=== PATIENT | female | born 1995 | race Two or more races ===

== ENCOUNTER 2022-03-31 09:44 | Emergency (ER) | payer MEDICAID ==
[~2022-03-31] VITALS: Ht 152.4 cm; Wt 54.5 kg
[2022-03-31 11:35] LABS: Basophils # (auto) 0.1 10 ^3/uL (0-0.2); Basophils % (auto) 0.7 % (0.0-2.0); Eosinophils # (auto) 0.1 10 ^3/uL (0-0.8); Eosinophils % (auto) 1.2 % (0.0-7.0); Hematocrit 33.6 % (36.0-46.0); Lymphocytes # (auto) 1.6 10 ^3/uL (0.4-5.4); Lymphocytes % (auto) 14.3 % (10.0-50.0); Mean Corpuscular Hemoglobin 29.7 pg (28.0-32.0); Mean Corpuscular Hgb Conc. 32.6 g/dL (32.0-36.0); Monocytes # (auto) 0.6 10 ^3/uL (0-1.3); Monocytes % (auto) 5.3 % (0.0-12.0); Neutrophils % (auto) 78.5 % (37.0-80.0); Nucleated Red Blood Cells % 0.1 %; Red Blood Cells 3.69 10^6/uL (4.0-5.20); Red Cell Distribution Width 14.4 % (11.8-14.3); White Blood Cell 11.4 10^3/uL (4.4-10.8)
[2022-03-31 11:51] LABS: Urine Bacteria FEW /hpf (None Seen); Urine Blood Negative /uL (Negative); Urine Budding Yeast MODERATE /hpf (None Seen); Urine Mucus FEW (None Seen); Urine Specific Gravity 1.023 (1.001-1.035); Urine WBC 13 /hpf (0 - 5)
[2022-03-31 12:05] LABS: BUN/Creatinine Ratio 19.6; Potassium 4.3 mmol/L (3.5-5.1)
[2022-03-31 13:10] VITALS: BP 120/62
[2022-03-31] MEDS ORDERED: NITR-87 PO (13:27)
== END 2022-03-31 13:55 | disposition home or self-care (01) ==
LOC: ER 09:44
DX: O23.42 Unspecified infection of urinary tract in pregnancy, second trimester (principal); N39.0 Urinary tract infection, site not specified; Z79.899 Other long term (current) drug therapy; Z3A.22 22 weeks gestation of pregnancy
CPT/HCPCS: 36415; 76805; 80048; 81001; 81025; 84702; 85025

== ENCOUNTER 2022-07-27 21:45 | Observation (INO) | payer MEDICAID ==
[~2022-07-27] VITALS: Ht 152.4 cm; Wt 64.9 kg
[~2022-07-27 21:45] MED LIST: NITR-87 PO
[2022-07-28] MEDS ORDERED: PREN-96 PO (11:20)
== END 2022-07-28 01:07 | disposition home or self-care (01) ==
LOC: LDRP 21:45
PROVIDERS: ADMIT Obstetrics & Gynecology; ATTEND Obstetrics & Gynecology
DX: O62.9 Abnormality of forces of labor, unspecified (principal); Z3A.39 39 weeks gestation of pregnancy
CPT/HCPCS: 59025; 81002; 94760; G0378

== ENCOUNTER 2022-07-28 08:36 | Inpatient (IN) | payer MEDICAID ==
[~2022-07-28] VITALS: Ht 152.4 cm; Wt 63.5 kg
[2022-07-28] MEDS ORDERED: DERMOPLAST 60ML BOTTLE TOP PRN (10:30)
[2022-07-28] MEDS ORDERED: PHISODERM TOP SOLN 240ML BTL TOP PRN (10:30)
[2022-07-28] MEDS ORDERED: LIDOCAINE 2%HCL (LOCAL ANESTH.) INJ 20ML MDV IJ PRN (10:30)
[2022-07-28] MEDS ORDERED: LACT. RINGERS/OXYTOCIN 20UNITS 500 ML IV ONE ×2 (10:30→11:00)
[2022-07-28] MEDS ORDERED: BUTORPHANOL TARTRATE 2 MG/1 ML VIAL IV PRN ×2 (10:30)
[2022-07-28] MEDS ORDERED: PROMETHAZINE HCL 25 MG/ML 1ML IV PRN (10:30)
[2022-07-28] MEDS ORDERED: PENICILLIN G POT 5MIL/D5 50ML 50 ML IV ONE (10:30)
[2022-07-28] MEDS: LACTATED RINGER'S 1,000 ML IV SCH ×2 (10:47→17:39)
[2022-07-28 11:03] LABS: Basophils # (auto) 0 10 ^3/uL (0-0.2); Basophils % (auto) 0.3 % (0.0-2.0); Eosinophils # (auto) 0.1 10 ^3/uL (0-0.8); Eosinophils % (auto) 0.4 % (0.0-7.0); Hematocrit 39.1 % (36.0-46.0); Hemoglobin 12.5 g/dL (12.2-16.2); Lymphocytes # (auto) 2.2 10 ^3/uL (0.4-5.4); Lymphocytes % (auto) 15.7 % (10.0-50.0); Mean Corpuscular Hemoglobin 28.6 pg (28.0-32.0); Mean Corpuscular Hgb Conc. 31.9 g/dL (32.0-36.0); Mean Corpuscular Volume 89.5 fL (80.0-100.0); Monocytes # (auto) 0.8 10 ^3/uL (0-1.3); Monocytes % (auto) 5.7 % (0.0-12.0); Neutrophils # (auto) 10.8 10 ^3/uL (1.6-8.6); Neutrophils % (auto) 77.9 % (37.0-80.0); Nucleated Red Blood Cells % 0.1 %; Red Blood Cells 4.37 10^6/uL (4.0-5.20); White Blood Cell 13.9 10^3/uL (4.4-10.8)
[2022-07-28 11:18] LABS: Albumin 2.8 g/dL (3.4-5.0); BUN/Creatinine Ratio 21.2; Calcium 8.9 mg/dL (8.5-10.1); Potassium 4.1 mmol/L (3.5-5.1)
[2022-07-28 11:19] LABS: INR 0.86 (0.9-1.15); Partial Thromboplastin Time 26.9 sec (24.6-33.4)
[2022-07-28] MEDS ORDERED: PREN-96 PO (11:20)
[2022-07-28 11:21] LABS: Bilirubin, Total 0.3 mg/dL (0.2-1.0); Total Protein 6.6 g/dL (6.4-8.2)
[2022-07-28 11:24] LABS: Urine Bacteria FEW /hpf (None Seen); Urine Blood 2+ /uL (Negative); Urine Specific Gravity 1.024 (1.001-1.035); Urine WBC 15 /hpf (0 - 5)
[2022-07-28 11:26] LABS: Alcohol, Urine < 3.0 mg/dL (0-10); Amphetamine Screen, Urine NEGATIVE (NEGATIVE); Barbiturate Scree,Urine NEGATIVE (NEGATIVE); Benzodiazephine Screen, Urine NEGATIVE (NEGATIVE); Cannabinoid Screen, Urine NEGATIVE (NEGATIVE); Cocaine Screen, Urine NEGATIVE (NEGATIVE); Opiate Scree,Urine NEGATIVE (NEGATIVE); Phencyclidine Screen, Urine NEGATIVE (NEGATIVE)
[2022-07-28] MEDS ORDERED: LACTATED RINGER'S 1,000 ML IV ONE (12:15)
[2022-07-28] MEDS ORDERED: ePHEDrine SULFATE 50 MG/ML AMP IV ONE (12:15)
[2022-07-28] MEDS ORDERED: ROPIVACAINE HCL 200 ML EPI SCH (12:15)
[2022-07-28] MEDS ORDERED: LIDOCAINE HCL 2 %PF INJ 10ML AMP IJ ONE ×2 (12:44→17:45)
[2022-07-28] MEDS ORDERED: PENICILLIN G POTASSIUM 2,500,000 UNITS in D5W 5% 50 ML IV SCH (14:30)
[2022-07-28] MEDS ORDERED: TERBUTALINE SULFATE 1 MG/ML 1ML VIAL SC PRN (17:45)
[2022-07-28] MEDS ORDERED: LACT. RINGERS/OXYTOCIN 20UNITS 1,000 ML IV SCH (17:45)
[2022-07-28] MEDS ORDERED: METHYLERGONOVINE MALEATE 0.2 MG/ML AMP IM ONE ×2 (19:47→20:15)
[2022-07-28] MEDS ORDERED: ONDANSETRON ODT 4 MG TAB PO PRN (20:15)
[2022-07-28] MEDS: DOCUSATE SOD 100 MG CAP PO SCH (22:20)
[2022-07-28] MEDS: ACETAMINOPHEN 325 MG TAB PO PRN (22:21)
[2022-07-28] MEDS ORDERED: IBUPROFEN 800 MG TAB PO PRN (22:45)
[2022-07-28] MEDS: WITCH HAZEL-GLYCERIN PAD TOP PRN (22:46)
[2022-07-28 23:00] VITALS: BP 98/59
[2022-07-29] VITALS (7 sets, daily range): BP systolic 89–104; BP diastolic 47–60
[2022-07-29] MEDS ORDERED: IBUPROFEN 800 MG TAB PO SCH
[2022-07-29 07:06] LABS: RPR Non Reactive (Non Reactive)
[2022-07-29] MEDS: ACETAMINOPHEN 325 MG TAB PO PRN (17:34)
[2022-07-29] MEDS: DOCUSATE SOD 100 MG CAP PO SCH (22:00)
[2022-07-30 03:00] VITALS: BP 92/55
[2022-07-30] MEDS: WITCH HAZEL-GLYCERIN PAD TOP PRN (03:44)
[2022-07-30] MEDS: ACETAMINOPHEN 325 MG TAB PO PRN (03:44)
[2022-07-30 07:00] VITALS: BP 97/42
[2022-07-30 11:00] VITALS: BP 100/55
== END 2022-07-30 11:15 | disposition home or self-care (01) | DRG 560 ==
LOC: LDRP 08:36 → OBSVTOIN 10:13 → LDRP 10:22
PROVIDERS: ADMIT Obstetrics & Gynecology; ATTEND Obstetrics & Gynecology
PROC: 10E0XZZ Delivery of Products of Conception, External Approach (ICD-10-PCS; principal; 2022-07-28)
PROC: 0KQM0ZZ Repair Perineum Muscle, Open Approach (ICD-10-PCS; 2022-07-28)
PROC: 3E0R3BZ Introduction of Anesthetic Agent into Spinal Canal, Percutaneous Approach (ICD-10-PCS; 2022-07-28)
PROC: 00HU33Z Insertion of Infusion Device into Spinal Canal, Percutaneous Approach (ICD-10-PCS; 2022-07-28)
DX: O70.1 Second degree perineal laceration during delivery (principal); Z37.0 Single live birth; Z20.822 Contact with and (suspected) exposure to COVID-19; Z3A.39 39 weeks gestation of pregnancy
CPT/HCPCS: 36415; 59025; 59409; 62282; 80053; 80307; 81001; 81002; 85025; 85610; 85730; 86592; 86850; 86900; 86901; 87426; 94760; 96360; 96361; 96365; 96366; 96372; G0378; J2540; J2590; J7060